=== PATIENT | male | born 1970 | race Caucasian/White ===

== ENCOUNTER 2017-04-30 13:57 | Emergency (ER) | payer SELFPAY ==
[2017-04-30 15:17] VITALS: BP 150/100
--- NOTE | 2017-04-30 15:19 | ER Document Report ---
ED General - General Chief Complaint: Toothache Stated Complaint: TOOTHACHE Time Seen by Provider: 04/30/17 15:14 Mode of Arrival: Ambulatory Information source: Patient Notes: Patient reports pain in the left upper molar. He states he has had this for several days. It is constant. It is worse with chewing better when his left alone. The pain does radiate into his face somewhat. No fevers. No problem swallowing or speaking it is an aching and sharp sensation. TRAVEL OUTSIDE OF THE [place] IN LAST 30 DAYS: No - Related Data Allergies/Adverse Reactions: No Known Allergies Allergy (Verified 04/30/17 14:08) Past Medical History - Social History Smoking Status: Unknown if Ever Smoked Chew tobacco use (# tins/day): No Frequency of alcohol use: None Drug Abuse: None Family History: Reviewed & Not Pertinent Patient has suicidal ideation: No Patient has homicidal ideation: No Renal/ Medical History: Denies: Hx Peritoneal Dialysis Surgical Hx: Negative - Immunizations Hx Diphtheria, Pertussis, Tetanus Vaccination: - unknown Review of Systems - Review of Systems Constitutional: denies: Chills, Fever Respiratory: denies: Cough, Short of breath, Stridor, Wheezing Physical Exam - Vital signs Vitals: Temp Pulse Resp BP Pulse Ox 98.7 F 86 18 166/88 H 97 04/30/17 14:11 04/30/17 14:11 04/30/17 14:11 04/30/17 14:11 04/30/17 14:11 Interpretation: Hypertensive - General General appearance: Appears well, Alert - HEENT Head: Normocephalic, Atraumatic Eyes: Normal Conjunctiva: Normal Nasal: Normal Mouth/Lips: Other - Patient has poor dentition with numerous caries. The tooth which patient points is the most painful is tender to ballottement. Gums are indurated surrounding this tooth. There is no obvious abscess. Mucous membranes: Moist Teeth diagram: 1 - area of pain Pharynx: Normal. No: Erythema, Exudate Neck: Normal - Respiratory Respiratory status: No respiratory distress Chest status: Nontender Breath sounds: Normal Chest palpation: Normal - Cardiovascular Rhythm: Regular Heart sounds: Normal auscultation Murmur: No Course - Vital Signs Vital signs: Temp Pulse Resp BP Pulse Ox 98.7 F 86 18 166/88 H 97 04/30/17 14:11 04/30/17 14:11 04/30/17 14:11 04/30/17 14:11 04/30/17 14:11 Discharge - Discharge Clinical Impression: Toothache Condition: Stable Disposition: HOME, SELF-CARE Instructions: [facility], Oral Narcotic Medication (COUNT INCLUDES THE [facility]), Penicillin V K (COUNT INCLUDES THE [facility]), Toothache (COUNT INCLUDES THE [facility]) Additional Instructions: call dentist as soon as possible Prescriptions: Oxycodone HCl/Acetaminophen [Percocet 5-325 mg Tablet] 1 - 2 tab PO Q6 #20 tablet Penicillin V Potassium [Penicillin Vk 500 mg Tablet] 1,000 mg PO BID #40 tablet Forms: Elevated Blood Pressure
== END 2017-04-30 15:22 | disposition home or self-care (01) ==
LOC: ER 13:57
DX: K08.89 Other specified disorders of teeth and supporting structures (principal)
CPT/HCPCS: 99283